=== PATIENT | male | born 1975 | race Caucasian/White ===

== ENCOUNTER 2023-01-23 19:49 | Emergency (ER) | payer SELFPAY | END 2023-01-23 20:31 | disposition home or self-care (01) | LOC: BURERS 19:49 | DX: H66.011 Acute suppurative otitis media with spontaneous rupture of ear drum, right ear (principal); F17.210 Nicotine dependence, cigarettes, uncomplicated | CPT/HCPCS: 99282 ==

== ENCOUNTER 2023-11-26 21:25 | Emergency (ER) | payer SELFPAY | END 2023-11-26 23:36 | disposition home or self-care (01) | LOC: BURERS 21:25 | DX: S52.501A Unspecified fracture of the lower end of right radius, initial encounter for closed fracture (principal); F17.210 Nicotine dependence, cigarettes, uncomplicated; W19.XXXA Unspecified fall, initial encounter | CPT/HCPCS: 29125 ==